=== PATIENT | female | born 1970 | race Caucasian/White ===

== ENCOUNTER 2020-03-08 08:30 | Inpatient (IN) | payer MEDICAID, SELFPAY ==
[~2020-03-08] VITALS: Ht 157.5 cm; Wt 81.6 kg
[2020-03-08 08:58] VITALS: BP_SYST 87
[2020-03-08] MEDS ORDERED: NS 1000 ML IV.SOLN IV ONE (09:00)
[2020-03-08 09:36] LABS: BASOPHILS # (AUTO) 0.1 K/uL (0.0-0.2); BASOPHILS % (AUTO) 0.5 % (0.0-2.0); HEMATOCRIT 54.4 % (36-48); HEMOGLOBIN 16.8 g/dL (12.0-16.0); LYMPHOCYTES # (AUTO) 0.7 K/uL (1.0-5.5); LYMPHOCYTES % (AUTO) 3.1 % (20.5-51.5); MEAN CORPUSCULAR HEMOGLOBIN 30 pg (27-31); MEAN CORPUSCULAR HGB CONC 31 % (32-36); MEAN CORPUSCULAR VOLUME 98 fL (79.0-98.0); MONOCYTES # (AUTO) 1.2 K/uL (0.0-1.0); MONOCYTES % (AUTO) 5.8 % (1.7-9.3); NEUTROPHILS # (AUTO) 19.5 K/uL (1.8-7.7); NEUTROPHILS % (AUTO) 90.6 % (40.0-70.0); PLATELET COUNT (AUTO) 366 K/uL (130-430); RED BLOOD CELL COUNT(AUTO) 5.54 MIL/uL (4.2-6.2); RED CELL DISTRIBUTION WIDTH 14.8 % (9.0-15.0); WHITE BLOOD COUNT (AUTO) 21.5 K/uL (4.8-10.8)
[2020-03-08 09:55] LABS: PROTHROMBIN TIME 10.2 SECS (9.5-12.5)
[2020-03-08] MEDS ORDERED: PANTOPRAZOLE SODIUM 40 MG/VIAL (PROTONIX) IVP ONE (10:15)
[2020-03-08] MEDS ORDERED: PIPERACILLIN/TAZO 3.375 GM in NS 50 ML IV ONE (10:15)
[2020-03-08] MEDS ORDERED: ONDANSETRON HCL 4 MG/2 ML VIAL IVP ONE (10:15)
[2020-03-08 10:17] LABS: CALCIUM 9.5 mg/dL (8.4-11.0); CREATININE 3.27 mg/dL (0.55-1.30); POTASSIUM 5.4 mmol/L (3.5-5.1)
[2020-03-08 10:21] LABS: ALBUMIN 4.1 g/dL (3.4-4.8); TOTAL BILIRUBIN 0.7 mg/dL (0.0-1.0)
[2020-03-08] MEDS ORDERED: PIPERACILLIN/TAZOBACTAM 3.375 GM/VIAL (ZOSYN) IV ONE ×2 (10:33)
[2020-03-08] MEDS ORDERED: NACL 0.9% 1,000 ML IV ONE (11:00)
[2020-03-08] MEDS ORDERED: INSULIN REGULAR, HUMAN 100 UNITS in NS 99 ML IV ONE ×2 (11:00)
[2020-03-08] MEDS ORDERED: INSULIN REGULAR, HUMAN 100 UNITS in NS 99 ML IV SCH ×2 (12:15)
[2020-03-08] MEDS ORDERED: DEXTROSE 50% JECT 25 ML (1/2 AMP) IVP PRN (12:45)
[2020-03-08] MEDS ORDERED: DEXTROSE 50% JECT 50 ML (1 AMP) IVP PRN (12:45)
[2020-03-08] MEDS ORDERED: INSULIN REGULAR, HUMAN 100 UNITS in NS 99 ML IV PRN ×2 (12:45)
[2020-03-08] MEDS: NACL 0.9% 1,000 ML IV SCH ×2 (13:22→20:00)
[2020-03-08 14:14] LABS: BILIRUBIN,URINE 1+ (NEGATIVE); BLOOD, URINE 2+ (NEGATIVE); CLARITY/URINE CLEAR (CLEAR); COLOR,URINE YELLOW (YELLOW); GLUCOSE,URINE 3+ (NEGATIVE); KETONES,URINE 3+ (NEGATIVE); LEUKOCYTE ESTERASE ,URINE 1+ (NEGATIVE); NITRITE, URINE NEGATIVE (NEGATIVE); PH,URINE 5.5 (5.0-8.0); PROTEIN URINE 2+ (NEGATIVE); UROBILINOGEN,URINE 0.2 (0.2-1.0)
[2020-03-08 14:25] LABS: BACTERIA,URINE MODERATE /HPF (None Seen)
[2020-03-08 14:26] LABS: MUCUS,URINE 1+ /LPF (None Seen)
[2020-03-08] MEDS ORDERED: LORazepam 2 MG/ML VIAL IVP PRN (19:30)
[2020-03-08] MEDS ORDERED: ONDANSETRON HCL 4 MG/2 ML VIAL IVP PRN (19:30)
[2020-03-08] MEDS ORDERED: HYDROcodone/ACETAMIN 5-325 MG TAB (NORCO/ VICODIN) PO PRN (19:30)
[2020-03-08] MEDS ORDERED: HYDROcodone/ACETAMIN 10-325 MG TAB PO PRN (19:30)
[2020-03-08] MEDS ORDERED: ACETAMINOPHEN 325 MG TABLET PO PRN (19:30)
[2020-03-08] MEDS ORDERED: NALOXONE HCL 0.4 MG/ML AMP (NARCAN) IVP PRN ×2 (19:30)
[2020-03-08] MEDS ORDERED: LEVOFLOXACIN 500 MG/D5W 100 ML IV ONE (19:45)
[2020-03-08] MEDS: GEMFIBROZIL 600 MG TABLET (LOPID) PO SCH (21:00)
[2020-03-08] MEDS ORDERED: DEXTROSE 50% JECT 50 ML DISP.SYRIN IVP PRN (22:45)
[2020-03-08] MEDS: INSULIN REGULAR, HUMAN 100 UNITS in NS 99 ML IV PRN ×2 (23:07)
[2020-03-09] MEDS: NACL 0.9% 1,000 ML IV SCH ×4 (01:12→22:21)
[2020-03-09] MEDS: INSULIN REGULAR, HUMAN 100 UNITS in NS 99 ML IV PRN ×2 (05:33)
[2020-03-09 07:11] LABS: BASOPHILS # (AUTO) 0.1 K/uL (0.0-0.2); BASOPHILS % (AUTO) 0.3 % (0.0-2.0); HEMATOCRIT 43.4 % (36-48); HEMOGLOBIN 14.3 g/dL (12.0-16.0); LYMPHOCYTES # (AUTO) 0.5 K/uL (1.0-5.5); MEAN CORPUSCULAR HEMOGLOBIN 30 pg (27-31); MEAN CORPUSCULAR HGB CONC 33 % (32-36); MEAN CORPUSCULAR VOLUME 91 fL (79.0-98.0); MONOCYTES # (AUTO) 0.9 K/uL (0.0-1.0); MONOCYTES % (AUTO) 5.6 % (1.7-9.3); NEUTROPHILS # (AUTO) 15.4 K/uL (1.8-7.7); NEUTROPHILS % (AUTO) 91.1 % (40.0-70.0); PLATELET COUNT (AUTO) 236 K/uL (130-430); RED CELL DISTRIBUTION WIDTH 13.5 % (9.0-15.0); WHITE BLOOD COUNT (AUTO) 16.9 K/uL (4.8-10.8)
[2020-03-09 07:52] LABS: CALCIUM 8.6 mg/dL (8.4-11.0); CREATININE 1.69 mg/dL (0.55-1.30); POTASSIUM 3.4 mmol/L (3.5-5.1)
[2020-03-09] MEDS: GEMFIBROZIL 600 MG TABLET (LOPID) PO SCH ×2 (09:00→21:32)
[2020-03-09 09:38] LABS: C-REACTIVE PROTEIN QUANT 17.7 mg/dL (0-0.5)
[2020-03-09 10:16] LABS: PHOSPHORUS 0.9 mg/dL (2.7-4.5)
[2020-03-09 11:43] LABS: ERYTHROCYTE SEDIMENTATION RATE 59 MM/HR (0-20)
[2020-03-09] MEDS ORDERED: INSULIN REGULAR, HUMAN 10 UNITS/0.1 ML INJ ONE (18:13)
[2020-03-09] MEDS: INSULIN REGULAR, HUMAN 100 UNITS/ML, 10 ML VIAL (humuLIN R) SUBCUT PRN (18:14)
[2020-03-09 20:56] VITALS: BP_SYST 132
[2020-03-09 21:00] VITALS: BP_SYST 132
[2020-03-09] MEDS ORDERED: LEVOFLOXACIN 250 MG/D5W 250 ML IV SCH (21:00)
[2020-03-09] MEDS ORDERED: FLU VACC QS2020-21 (6 mos & up) 0.5 ML/SYRINGE I.M. PRN (21:15)
[2020-03-09] MEDS ORDERED: LEVOFLOXACIN 250 MG/D5W 50 ML IV ONE (21:44)
[2020-03-10] VITALS: BP_SYST 145
[2020-03-10] MEDS: INSULIN REGULAR, HUMAN 100 UNITS/ML, 10 ML VIAL (humuLIN R) SUBCUT PRN ×3 (00:07→11:52)
[2020-03-10] MEDS: NACL 0.9% 1,000 ML IV SCH (05:36)
[2020-03-10] MEDS ORDERED: DIF100 PO (07:44)
[2020-03-10] MEDS ORDERED: METF1000 PO (07:44)
[2020-03-10] MEDS ORDERED: PIOG30TA70 PO (07:44)
[2020-03-10] MEDS ORDERED: LOP600 PO (07:47)
[2020-03-10 08:09] VITALS: BP_SYST 137
[2020-03-10] MEDS ORDERED: 0.45% NACL 1,000 ML IV SCH (09:00)
[2020-03-10 09:06] LABS: BASOPHILS % (AUTO) 0.3 % (0.0-2.0); EOSINOPHILS % (AUTO) 0.1 % (0.0-4.0); HEMATOCRIT 39.7 % (36-48); HEMOGLOBIN 13.2 g/dL (12.0-16.0); LYMPHOCYTES % (AUTO) 8.3 % (20.5-51.5); MEAN CORPUSCULAR HEMOGLOBIN 30 pg (27-31); MEAN CORPUSCULAR HGB CONC 33 % (32-36); MEAN CORPUSCULAR VOLUME 90 fL (79.0-98.0); MONOCYTES # (AUTO) 0.6 K/uL (0.0-1.0); MONOCYTES % (AUTO) 5.4 % (1.7-9.3); NEUTROPHILS # (AUTO) 10.2 K/uL (1.8-7.7); NEUTROPHILS % (AUTO) 85.9 % (40.0-70.0); PLATELET COUNT (AUTO) 187 K/uL (130-430); RED BLOOD CELL COUNT(AUTO) 4.41 MIL/uL (4.2-6.2); RED CELL DISTRIBUTION WIDTH 13.9 % (9.0-15.0); WHITE BLOOD COUNT (AUTO) 11.9 K/uL (4.8-10.8)
[2020-03-10 09:29] LABS: ALBUMIN 2.5 g/dL (3.4-4.8); CALCIUM 8.4 mg/dL (8.4-11.0); CREATININE 1.15 mg/dL (0.55-1.30); PHOSPHORUS 1.3 mg/dL (2.7-4.5); TOTAL BILIRUBIN 0.5 mg/dL (0.0-1.0)
[2020-03-10] MEDS: GEMFIBROZIL 600 MG TABLET (LOPID) PO SCH (09:44)
[2020-03-10] MEDS: POTASSIUM CHLORIDE 20 MEQ TAB.PRT.SR PO ONE ×2 (10:45→11:53)
[2020-03-10 11:03] LABS: ERYTHROCYTE SEDIMENTATION RATE 67 MM/HR (0-20)
[2020-03-10] MEDS ORDERED: POTASSIUM CHLORIDE 20 MEQ TAB.PRT.SR ONE (11:48)
[2020-03-10 12:47] VITALS: BP_SYST 143
[2020-03-10 12:51] VITALS: BP_SYST 143
[2020-03-10] MEDS ORDERED: POTASSIUM CHLORIDE 20 MEQ/PKT PACKET PO ONE (13:45)
[2020-03-10 16:00] VITALS: BP_SYST 130
[2020-03-10] MEDS ORDERED: LEVOFLOXACIN 500 MG/D5W 100 ML IV SCH (21:00)
== END 2020-03-10 18:14 | disposition home or self-care (01) | DRG 720 ==
LOC: SED 08:30 → SIC 12:13 → STU 03-09 20:29
PROVIDERS: ADMIT Preventive Medicine Preventive Medicine/Occupational Environmental Medicine; ATTEND Preventive Medicine Preventive Medicine/Occupational Environmental Medicine
DX: A41.9 Sepsis, unspecified organism (principal); K85.90 Acute pancreatitis without necrosis or infection, unspecified; E11.10 Type 2 diabetes mellitus with ketoacidosis without coma; N17.9 Acute kidney failure, unspecified; E87.6 Hypokalemia; N39.0 Urinary tract infection, site not specified; E87.1 Hypo-osmolality and hyponatremia; D75.1 Secondary polycythemia; E87.5 Hyperkalemia; E78.1 Pure hyperglyceridemia; I10 Essential (primary) hypertension; E83.39 Other disorders of phosphorus metabolism; E83.41 Hypermagnesemia; E78.2 Mixed hyperlipidemia; Z20.822 Contact with and (suspected) exposure to COVID-19; N17.0 Acute kidney failure with tubular necrosis
CPT/HCPCS: 36415; 71045; 76376; 80048; 80053; 80061; 81000-TC; 82150-TC; 82962; 83036; 83605; 83690-TC; 83735-TC; 84100-TC; 84478-TC; 84484; 85025; 85610-TC; 85651-TC; 85730-TC; 86140; 87040-TC; 87086; 93005; 96361; 96365; 96367; 96375; 99285; C9113; G0378; J1815; J1956; J2405; J2543; J7030

== ENCOUNTER 2020-03-12 11:14 | Inpatient (IN) | payer MEDICAID, SELFPAY ==
[~2020-03-12] VITALS: Ht 157.5 cm; Wt 77.1 kg
[~2020-03-12 11:14] MED LIST: DIF100 PO; LOP600 PO; METF1000 PO; PIOG30TA70 PO
[2020-03-12 11:50] VITALS: BP_SYST 124
[2020-03-12] MEDS ORDERED: ONDANSETRON 4 MG ODT TAB PO ONE (12:30)
[2020-03-12] MEDS ORDERED: ONDANSETRON HCL 4 MG/2 ML VIAL IVP ONE (12:45)
[2020-03-12] MEDS ORDERED: NACL 0.9% 1,000 ML IV ONE ×2 (12:45→14:00)
[2020-03-12 13:30] LABS: CREATININE 1.56 mg/dL (0.55-1.30); POTASSIUM 4.3 mmol/L (3.5-5.1)
[2020-03-12 13:41] LABS: ALBUMIN 3.1 g/dL (3.4-4.8); TOTAL BILIRUBIN 0.6 mg/dL (0.0-1.0)
[2020-03-12 13:43] LABS: BASOPHILS % (AUTO) 0.4 % (0.0-2.0); HEMATOCRIT 46.7 % (36-48); HEMOGLOBIN 15.1 g/dL (12.0-16.0); LYMPHOCYTES # (AUTO) 0.6 K/uL (1.0-5.5); LYMPHOCYTES % (AUTO) 5.9 % (20.5-51.5); MEAN CORPUSCULAR HEMOGLOBIN 30 pg (27-31); MEAN CORPUSCULAR HGB CONC 32 % (32-36); MEAN CORPUSCULAR VOLUME 94 fL (79.0-98.0); MONOCYTES # (AUTO) 0.4 K/uL (0.0-1.0); NEUTROPHILS # (AUTO) 9.6 K/uL (1.8-7.7); NEUTROPHILS % (AUTO) 89.7 % (40.0-70.0); PLATELET COUNT (AUTO) 200 K/uL (130-430); RED BLOOD CELL COUNT(AUTO) 4.96 MIL/uL (4.2-6.2); WHITE BLOOD COUNT (AUTO) 10.7 K/uL (4.8-10.8)
[2020-03-12] MEDS ORDERED: INSULIN REGULAR, HUMAN 10 UNITS/0.1 ML INJ IVP ONE (14:00)
[2020-03-12] MEDS: D5/0.45 NS 1,000 ML IV SCH (15:45)
[2020-03-12] MEDS ORDERED: LORazepam 2 MG/ML VIAL IVP PRN (17:00)
[2020-03-12] MEDS ORDERED: MORPHINE 4 MG/ML INJ. SYRINGE IVP PRN (17:00)
[2020-03-12] MEDS ORDERED: MORPHINE 2 MG/ML INJ. SYRINGE IVP PRN (17:00)
[2020-03-12] MEDS ORDERED: ONDANSETRON HCL 4 MG/2 ML VIAL IVP PRN (17:00)
[2020-03-12] MEDS ORDERED: GLUCOSE (DEXTROSE) ORAL GEL -Adults PO PRN (17:00)
[2020-03-12] MEDS ORDERED: D5W 1,000 ML IV PRN (17:00)
[2020-03-12] MEDS ORDERED: NALOXONE HCL 0.4 MG/ML AMP (NARCAN) IVP PRN (17:00)
[2020-03-12] MEDS ORDERED: DEXTROSE 50% JECT 50 ML DISP.SYRIN IVP PRN (17:00)
[2020-03-12] MEDS: NACL 0.9% 1,000 ML IV SCH (17:39)
[2020-03-12] MEDS: INSULIN REGULAR, HUMAN 100 UNITS/ML, 10 ML VIAL (humuLIN R) SUBCUT PRN ×2 (19:07→23:45)
[2020-03-12] MEDS ORDERED: INSULIN REGULAR, HUMAN 10 UNITS/0.1 ML INJ ONE (19:11)
[2020-03-12 21:23] VITALS: BP_SYST 121
[2020-03-13] VITALS: BP_SYST 117
[2020-03-13] MEDS: INSULIN REGULAR, HUMAN 100 UNITS/ML, 10 ML VIAL (humuLIN R) SUBCUT PRN ×4 (05:23→23:40)
[2020-03-13 06:22] LABS: BASOPHILS % (AUTO) 0.2 % (0.0-2.0); EOSINOPHILS % (AUTO) 0.1 % (0.0-4.0); HEMATOCRIT 41.9 % (36-48); HEMOGLOBIN 13.6 g/dL (12.0-16.0); LYMPHOCYTES # (AUTO) 0.9 K/uL (1.0-5.5); MEAN CORPUSCULAR HEMOGLOBIN 30 pg (27-31); MEAN CORPUSCULAR HGB CONC 33 % (32-36); MEAN CORPUSCULAR VOLUME 93 fL (79.0-98.0); MONOCYTES # (AUTO) 0.5 K/uL (0.0-1.0); MONOCYTES % (AUTO) 5.2 % (1.7-9.3); NEUTROPHILS # (AUTO) 8.5 K/uL (1.8-7.7); NEUTROPHILS % (AUTO) 85.5 % (40.0-70.0); PLATELET COUNT (AUTO) 157 K/uL (130-430); RED BLOOD CELL COUNT(AUTO) 4.52 MIL/uL (4.2-6.2); RED CELL DISTRIBUTION WIDTH 14.5 % (9.0-15.0); WHITE BLOOD COUNT (AUTO) 9.9 K/uL (4.8-10.8)
[2020-03-13 07:22] LABS: ALBUMIN 2.6 g/dL (3.4-4.8); CALCIUM 8.7 mg/dL (8.4-11.0); CREATININE 1.32 mg/dL (0.55-1.30); PHOSPHORUS 2.4 mg/dL (2.7-4.5); TOTAL BILIRUBIN 0.8 mg/dL (0.0-1.0)
[2020-03-13 08:17] VITALS: BP_SYST 134
[2020-03-13] MEDS: NACL 0.9% 1,000 ML IV SCH ×3 (08:20→20:16)
[2020-03-13 09:28] LABS: POTASSIUM 3.7 mmol/L (3.5-5.1)
[2020-03-13] MEDS: D5/0.45 NS 1,000 ML IV SCH (11:45)
[2020-03-13 16:42] VITALS: BP_SYST 124
[2020-03-14 01:21] VITALS: BP_SYST 133
[2020-03-14] MEDS: INSULIN REGULAR, HUMAN 100 UNITS/ML, 10 ML VIAL (humuLIN R) SUBCUT PRN ×3 (05:49→17:44)
[2020-03-14] MEDS: NACL 0.9% 1,000 ML IV SCH (05:56)
[2020-03-14 06:43] LABS: BASOPHILS % (AUTO) 0.2 % (0.0-2.0); EOSINOPHILS % (AUTO) 0.2 % (0.0-4.0); HEMATOCRIT 40.7 % (36-48); HEMOGLOBIN 13.5 g/dL (12.0-16.0); LYMPHOCYTES # (AUTO) 0.7 K/uL (1.0-5.5); LYMPHOCYTES % (AUTO) 7.9 % (20.5-51.5); MEAN CORPUSCULAR HEMOGLOBIN 30 pg (27-31); MEAN CORPUSCULAR HGB CONC 33 % (32-36); MEAN CORPUSCULAR VOLUME 91 fL (79.0-98.0); MONOCYTES # (AUTO) 0.5 K/uL (0.0-1.0); MONOCYTES % (AUTO) 5.8 % (1.7-9.3); NEUTROPHILS # (AUTO) 8.1 K/uL (1.8-7.7); NEUTROPHILS % (AUTO) 85.9 % (40.0-70.0); PLATELET COUNT (AUTO) 135 K/uL (130-430); RED BLOOD CELL COUNT(AUTO) 4.49 MIL/uL (4.2-6.2); RED CELL DISTRIBUTION WIDTH 14.4 % (9.0-15.0); WHITE BLOOD COUNT (AUTO) 9.4 K/uL (4.8-10.8)
[2020-03-14] MEDS ORDERED: HYDROcodone/ACETAMIN 5-325 MG TAB (NORCO/ VICODIN) PO PRN (07:45)
[2020-03-14] MEDS ORDERED: HYDROcodone/ACETAMIN 10-325 MG TAB PO PRN (07:45)
[2020-03-14] MEDS ORDERED: ACETAMINOPHEN 325 MG TABLET PO PRN ×2 (07:45→08:45)
[2020-03-14] MEDS ORDERED: NALOXONE HCL 0.4 MG/ML AMP (NARCAN) IVP PRN ×2 (07:45)
[2020-03-14 07:51] LABS: ALBUMIN 2.4 g/dL (3.4-4.8); CALCIUM 8.3 mg/dL (8.4-11.0); CREATININE 1.09 mg/dL (0.55-1.30); POTASSIUM 3.1 mmol/L (3.5-5.1); TOTAL BILIRUBIN 0.4 mg/dL (0.0-1.0)
[2020-03-14 08:00] VITALS: BP_SYST 142
[2020-03-14 08:22] LABS: INR 0.9 (0.8-1.2); PROTHROMBIN TIME 9.6 SECS (9.5-12.5)
[2020-03-14] MEDS ORDERED: PIOGLITAZONE HCL 15 MG TABLET PO SCH (09:00)
[2020-03-14] MEDS ORDERED: GEMFIBROZIL 600 MG TABLET (LOPID) PO SCH (09:00)
[2020-03-14] MEDS ORDERED: OMEGA-3/DHA/EPA/FISH OIL 1 GM CAPSULE PO SCH (09:00)
[2020-03-14] MEDS ORDERED: FLUCONAZOLE 100 MG TABLET (DIFLUCAN) PO SCH (09:00)
[2020-03-14] MEDS: 0.45% NACL 1,000 ML IV SCH ×2 (10:20→17:35)
[2020-03-14] MEDS: metFORMIN HCL 500 MG TABLET PO SCH ×2 (10:43→17:42)
[2020-03-14 12:14] VITALS: BP_SYST 151
[2020-03-14] MEDS ORDERED: POTASSIUM CHLORIDE 20 MEQ TAB.PRT.SR PO ONE (15:30)
[2020-03-14 16:13] VITALS: BP_SYST 127
[2020-03-14 17:07] LABS: CALCIUM 8.6 mg/dL (8.4-11.0); CREATININE 1.09 mg/dL (0.55-1.30); POTASSIUM 3.3 mmol/L (3.5-5.1)
[2020-03-14 19:15] VITALS: BP_SYST 135
== END 2020-03-14 21:53 | disposition short-term general hospital (02) | DRG 282 ==
LOC: SED 11:14 → SMU 15:45
PROVIDERS: ADMIT Preventive Medicine Preventive Medicine/Occupational Environmental Medicine; ATTEND Preventive Medicine Preventive Medicine/Occupational Environmental Medicine
DX: K85.90 Acute pancreatitis without necrosis or infection, unspecified (principal); K57.90 Diverticulosis of intestine, part unspecified, without perforation or abscess without bleeding; E87.0 Hyperosmolality and hypernatremia; E86.9 Volume depletion, unspecified; E11.65 Type 2 diabetes mellitus with hyperglycemia; E43 Unspecified severe protein-calorie malnutrition; E78.1 Pure hyperglyceridemia; E88.09 Other disorders of plasma-protein metabolism, not elsewhere classified; E66.9 Obesity, unspecified; E83.41 Hypermagnesemia; E83.39 Other disorders of phosphorus metabolism; E78.2 Mixed hyperlipidemia; E87.6 Hypokalemia; Z20.822 Contact with and (suspected) exposure to COVID-19; Z79.899 Other long term (current) drug therapy; Z68.31 Body mass index [BMI] 31.0-31.9, adult; N17.0 Acute kidney failure with tubular necrosis
CPT/HCPCS: 36415; 76376; 80048; 80053; 80061; 82150-TC; 82787; 82962; 83690-TC; 83735-TC; 84100-TC; 85025; 85610-TC; 85730-TC; 86038; 87081; 96361; 96374; 96375; 99285; J1815; J2405; J7030